=== PATIENT | female | born 1960 | race Caucasian/White ===

== ENCOUNTER 2021-06-20 11:42 | Emergency (ER) | payer OTHER ==
[~2021-06-20 11:42] MED LIST: ASPIR-LOW81 MG PO; BP MED; FISH OIL CONC1000 MG PO; LORTAB 5/500 501 TAB PO; MVI; NAPROSYN500 MG PO; NORCO 325 MG-51 TAB PO; PRILOSEC10 MG PO
[2021-06-20] MEDS ORDERED: ZOFRAN ODT4 MG PO (15:45)
== END 2021-06-20 11:57 | disposition left against medical advice (07) ==
LOC: COL.ER 11:42
DX: R69 Illness, unspecified (principal)

== ENCOUNTER 2021-06-20 12:49 | Emergency (ER) | payer OTHER ==
[~2021-06-20] VITALS: Ht 162.6 cm; Wt 72.7 kg
[2021-06-20 14:13] LABS: COLLECTION METHOD CLEAN CATCH
[2021-06-20 14:16] LABS: BASO % 0.1 % (0.0-2.0); GRAN # 6.6 K/mm3 (1.4-6.5); GRAN % 87.6 % (42.2-75.2); HEMATOCRIT 47.7 % (37.0-47.0); HEMOGLOBIN 15.9 g/dl (12.5-16.0); LYMPH # 0.7 K/mm3 (1.2-3.4); MEAN CELL VOLUME 94 fl (80.0-100.0); MEAN CORPUSCULAR HEMOGLOBIN 31 pg (27.0-31.0); MEAN CORPUSCULAR HGB CONC 33 g/dl (33.0-37.0); MEAN PLATELET VOLUME 9.5 fl (7.4-10.4); MONO # 0.2 K/mm3 (0.1-0.6); MONO % 2.8 % (1.7-9.3); PLATELET COUNT 328 K/mm3 (130-400); RED BLOOD COUNT 5.09 M/mm3 (4.10-5.30); REDCELL DISTRIBUTION WIDTH-CV 14.7 % (11.5-14.5)
[2021-06-20 14:20] LABS: MUCOUS Present (NOT PRESENT); PH 5 (5-8); SQUAMOUS EPITHELIAL 0-2 /hpf (0-10); URINE APPEARANCE Clear (CLEAR/HAZY); URINE BACTERIA None Seen (NONE SEEN); URINE BILIRUBIN Negative (NEGATIVE); URINE BLOOD 3+ (NEGATIVE); URINE COLOR Yellow (YELLOW); URINE GLUCOSE 3+ (NEGATIVE); URINE KETONE 2+ (NEGATIVE); URINE LEUKOCYTE ESTERASE Negative (NEGATIVE); URINE NITRATE Negative (NEGATIVE); URINE PROTEIN(semi-quant) Negative (NEGATIVE); URINE UROBILINOGEN Negative (NEGATIVE)
[2021-06-20 14:37] LABS: ALANINE AMINOTRANSFERASE 30 U/L (0-55); ALBUMIN 4.6 gm/dL (3.4-4.8); ALKALINE PHOSPHATASE 159 U/L (40-150); ANION GAP 19 mmol/L (7-16); AST,SGOT 17 U/L (5-34); BILIRUBIN,TOTAL 1.1 mg/dL (0.2-1.2); BLOOD UREA NITROGEN 27 mg/dL (10-20); CALCIUM 9.9 mg/dL (8.4-10.2); CARBON DIOXIDE 21 mmol/L (23-31); CHLORIDE 101 mmol/L (98-107); GLUCOSE 234 mg/dL (70-99); LIPASE < 10 U/L (8-78); POTASSIUM 4.1 mmol/L (3.5-4.5); SODIUM 141 mmol/L (136-145); TOTAL PROTEIN 8.1 gm/dL (6.2-8.1)
[2021-06-20 14:48] LABS: TROPONIN-I < 0.010 ng/mL (0.00-0.033)
[2021-06-20] MEDS ORDERED: ZOFRAN ODT4 MG PO (15:45)
[2021-06-20 16:26] VITALS: BP 138/64; PULSE 84; TEMP 98
== END 2021-06-20 16:28 | disposition home or self-care (01) ==
LOC: COL.ER 12:49
PROVIDERS: Emergency Medicine
DX: R11.2 Nausea with vomiting, unspecified (principal); E88.89 Other specified metabolic disorders; Z85.07 Personal history of malignant neoplasm of pancreas; Z20.822 Contact with and (suspected) exposure to COVID-19
CPT/HCPCS: J2405; J2765; J7030; Q9967